=== PATIENT | male | born 1955 | race Caucasian/White ===

== ENCOUNTER 2018-01-14 23:02 | Emergency (ER) | payer OTHER | END 2018-01-15 03:42 | disposition home or self-care (01) | LOC: FTE 23:02 | DX: J02.9 Acute pharyngitis, unspecified (principal); J45.909 Unspecified asthma, uncomplicated; E11.9 Type 2 diabetes mellitus without complications; Z79.82 Long term (current) use of aspirin; Z79.84 Long term (current) use of oral hypoglycemic drugs | CPT/HCPCS: 70490; 99284-25 ==

== ENCOUNTER 2018-02-15 20:53 | Inpatient (IN) | payer OTHER ==
[2018-02-15] MEDS: ALBUTEROL/IPRATROPIUM (NEB) 3 ML AMP HHN (22:59)
[2018-02-15] MEDS ORDERED: NACL 0.9% 3 ML SYG IV (23:00)
[2018-02-15] MEDS ORDERED: ONDANSETRON 4 MG TAB PO (23:00)
[2018-02-15] MEDS ORDERED: ACETAMINOPHEN 325 MG TAB PO (23:00)
[2018-02-15] MEDS: predniSONE 20 MG TAB PO (23:12)
[2018-02-15] MEDS: SALMETEROL/FLUTICASONE 500/50 INHA INH (23:12)
[2018-02-15] MEDS: INSULIN ASPART [NOVOLOG] 3 ML PEN SC (23:15)
[2018-02-16] MEDS: ALBUTEROL/IPRATROPIUM (NEB) 3 ML AMP HHN ×6 (01:12→21:05)
[2018-02-16] MEDS ORDERED: ALBUTEROL/IPRATROPIUM (NEB) 3 ML AMP HHN (02:00)
[2018-02-16] MEDS: LEVOFLOXACIN 750MG/D5W (PMX) 150 ML IVPB (02:19)
[2018-02-16] MEDS ORDERED: GLUCOSE GEL 15 GRAM TUBE BUCCAL (03:00)
[2018-02-16] MEDS ORDERED: GLUCAGON 1 MG INJ IM (03:00)
[2018-02-16] MEDS ORDERED: GLUCOSE GEL 15 GRAM TUBE PO ×2 (03:00)
[2018-02-16] MEDS ORDERED: DEXTROSE 50% 50 ML SYRINGE IV ×2 (03:00)
[2018-02-16] MEDS: GUAIFENESIN/CODEINE 5ML CUP PO (03:31)
[2018-02-16] MEDS: PANTOPRAZOLE (EC) 40 MG TAB PO ×2 (04:00→05:49)
[2018-02-16 05:47] LABS: ADD MAN DIFF? NO
[2018-02-16 05:52] LABS: WHITE BLOOD COUNT 5.3 10^3/ul (4.8-10.8)
[2018-02-16 05:52] LABS: ABNORMAL IP MESSAGE 1; BASOPHILS % 0.2 % (0.0-2.0); HEMOGLOBIN 13.1 g/dl (14.0-18.0); LYMPHOCYTES # 0.6 10^3/ul (0.8-2.9); LYMPHOCYTES % 11.2 % (15.0-51.0); MEAN CORPUSCULAR HEMOGLOBIN 28.8 pg (29.0-33.0); MEAN CORPUSCULAR HGB CONC 32.8 g/dl (32.0-37.0); MEAN CORPUSCULAR VOLUME 87.9 fl (82.0-101.0); MEAN PLATELET VOLUME 10.5 fl (7.4-10.4); MONOCYTE # 0.3 10^3/ul (0.3-0.9); MONOCYTES % 5.3 % (0.0-11.0); NEUTROPHIL # 4.4 10^3/ul (1.6-7.5); NEUTROPHILS % 82.9 % (39.0-77.0); PLATELET COUNT 218 10^3/UL (140-415); POSITIVE DIFF @See below; RED BLOOD COUNT 4.55 10^6/ul (4.70-6.10); RED CELL DISTRIBUTION WIDTH 12.5 % (11.5-14.5)
[2018-02-16 07:45] LABS: ALANINE AMINOTRANSFERASE 67 IU/L (13-69); ALBUMIN/GLOBULIN RATIO 1.37; ALKALINE PHOSPHATASE 62 IU/L (42-121); ANION GAP 17 (8-16); ASPARTATE AMINO TRANSFERASE 35 IU/L (15-46); BILIRUBIN,INDIRECT 0.1 mg/dl (0-1.1); BILIRUBIN,TOTAL 0.1 mg/dl (0.2-1.3); BLOOD UREA NITROGEN 10 mg/dl (7-20); CALCIUM 8.7 mg/dl (8.4-10.2); CARBON DIOXIDE 21 mmol/L (21-31); CHLORIDE 107 mmol/L (97-110); CHOL/HDL RATIO 2.2 RATIO; CHOLESTEROL 97 mg/dl (100-200); CREATININE 0.64 mg/dl (0.61-1.24); GLUCOSE 249 mg/dl (70-220); HDL CHOLESTEROL 43 mg/dl (30-78); LDL CHOLESTEROL,CALCULATED 32 mg/dl; MAGNESIUM 2.2 mg/dl (1.7-2.5); POTASSIUM 4.1 mmol/L (3.5-5.1); SODIUM 141 mmol/L (135-144); TOTAL PROTEIN 6.9 g/dl (6.1-8.1); TRIGLYCERIDES 108 mg/dl (0-149)
[2018-02-16 08:13] LABS: THYROID STIMULATING HORMONE 0.319 MIU/L (0.465-4.680)
[2018-02-16] MEDS: SALMETEROL/FLUTICASONE 500/50 INHA INH ×2 (08:26→20:34)
[2018-02-16] MEDS: predniSONE 20 MG TAB PO (08:26)
[2018-02-16] MEDS: INSULIN ASPART [NOVOLOG] 3 ML PEN SC ×6 (08:30→20:35)
[2018-02-16] MEDS: METHYLPREDNISOLONE 125 MG INJ IV ×2 (12:11→22:46)
[2018-02-16] MEDS: NPH, HUMAN INSULIN ISOPHANE 3ML VIAL SC ×2 (12:13→22:48)
[2018-02-16] MEDS: ENOXAPARIN 40 MG/0.4 ML SYG SC (12:14)
[2018-02-16 12:26] LABS: FREE T4 (FREE THYROXINE) 0.83 ng/dl (0.78-2.44)
[2018-02-16] MEDS: MONTELUKAST 10 MG TAB PO (20:33)
[2018-02-16] MEDS: INSULIN GLARGINE [LANtus] 3 ML PEN SC (20:36)
[2018-02-17] MEDS: ALBUTEROL/IPRATROPIUM (NEB) 3 ML AMP HHN ×6 (01:05→20:55)
[2018-02-17] MEDS: ACCUCHECK AT 2AM (Patients on SS coverage) XX (02:42)
[2018-02-17] MEDS: LEVOFLOXACIN 750MG/D5W (PMX) 150 ML IVPB (02:44)
[2018-02-17] MEDS: PANTOPRAZOLE (EC) 40 MG TAB PO (05:13)
[2018-02-17 06:10] LABS: ADD MAN DIFF? NO; BASOPHILS % 0.1 % (0.0-2.0); HEMATOCRIT 41.2 % (42.0-52.0); HEMOGLOBIN 13.5 g/dl (14.0-18.0); LYMPHOCYTES # 0.8 10^3/ul (0.8-2.9); LYMPHOCYTES % 10.5 % (15.0-51.0); MEAN CORPUSCULAR HEMOGLOBIN 28.8 pg (29.0-33.0); MEAN CORPUSCULAR HGB CONC 32.8 g/dl (32.0-37.0); MEAN CORPUSCULAR VOLUME 87.8 fl (82.0-101.0); MEAN PLATELET VOLUME 10.6 fl (7.4-10.4); MONOCYTE # 0.5 10^3/ul (0.3-0.9); MONOCYTES % 6.1 % (0.0-11.0); NEUTROPHIL # 6.1 10^3/ul (1.6-7.5); NEUTROPHILS % 82.9 % (39.0-77.0); PLATELET COUNT 226 10^3/UL (140-415); RED BLOOD COUNT 4.69 10^6/ul (4.70-6.10); RED CELL DISTRIBUTION WIDTH 12.8 % (11.5-14.5)
[2018-02-17 06:10] LABS: WHITE BLOOD COUNT 7.3 10^3/ul (4.8-10.8)
[2018-02-17 06:32] LABS: MAGNESIUM 2.2 mg/dl (1.7-2.5)
[2018-02-17 06:32] LABS: PHOSPHORUS 4.7 mg/dl (2.5-4.9)
[2018-02-17 06:42] LABS: ANION GAP 19 (8-16); BLOOD UREA NITROGEN 17 mg/dl (7-20); CARBON DIOXIDE 25 mmol/L (21-31); CHLORIDE 103 mmol/L (97-110); CREATININE 0.76 mg/dl (0.61-1.24); GLUCOSE 260 mg/dl (70-220); POTASSIUM 4.5 mmol/L (3.5-5.1); SODIUM 142 mmol/L (135-144)
[2018-02-17] MEDS: INSULIN ASPART [NOVOLOG] 3 ML PEN SC ×7 (08:23→22:02)
[2018-02-17] MEDS: METHYLPREDNISOLONE 40 MG INJ IV ×2 (09:13→21:53)
[2018-02-17] MEDS: SALMETEROL/FLUTICASONE 500/50 INHA INH ×2 (09:13→21:53)
[2018-02-17] MEDS: ENOXAPARIN 40 MG/0.4 ML SYG SC (09:17)
[2018-02-17] MEDS: NPH, HUMAN INSULIN ISOPHANE 3ML VIAL SC ×2 (09:24→22:00)
[2018-02-17] MEDS: MONTELUKAST 10 MG TAB PO (21:53)
[2018-02-17] MEDS: INSULIN GLARGINE [LANtus] 3 ML PEN SC (22:01)
[2018-02-18] MEDS: ALBUTEROL/IPRATROPIUM (NEB) 3 ML AMP HHN ×4 (01:07→12:18)
[2018-02-18] MEDS: ACCUCHECK AT 2AM (Patients on SS coverage) XX (02:25)
[2018-02-18] MEDS: LEVOFLOXACIN 750MG/D5W (PMX) 150 ML IVPB (02:26)
[2018-02-18] MEDS: PANTOPRAZOLE (EC) 40 MG TAB PO (05:10)
[2018-02-18 05:55] LABS: ADD MAN DIFF? NO
[2018-02-18 05:58] LABS: WHITE BLOOD COUNT 8.3 10^3/ul (4.8-10.8)
[2018-02-18 05:58] LABS: HEMATOCRIT 41.7 % (42.0-52.0); LYMPHOCYTES # 0.8 10^3/ul (0.8-2.9); LYMPHOCYTES % 9.7 % (15.0-51.0); MEAN CORPUSCULAR HEMOGLOBIN 29.4 pg (29.0-33.0); MEAN CORPUSCULAR HGB CONC 33.6 g/dl (32.0-37.0); MEAN CORPUSCULAR VOLUME 87.4 fl (82.0-101.0); MEAN PLATELET VOLUME 10.6 fl (7.4-10.4); MONOCYTE # 0.4 10^3/ul (0.3-0.9); MONOCYTES % 4.5 % (0.0-11.0); NEUTROPHIL # 7.1 10^3/ul (1.6-7.5); NEUTROPHILS % 85.6 % (39.0-77.0); PLATELET COUNT 216 10^3/UL (140-415); RED BLOOD COUNT 4.77 10^6/ul (4.70-6.10); RED CELL DISTRIBUTION WIDTH 12.5 % (11.5-14.5)
[2018-02-18 06:28] LABS: ANION GAP 17 (8-16); BLOOD UREA NITROGEN 20 mg/dl (7-20); CALCIUM 9.4 mg/dl (8.4-10.2); CARBON DIOXIDE 26 mmol/L (21-31); CHLORIDE 100 mmol/L (97-110); CREATININE 0.79 mg/dl (0.61-1.24); GLUCOSE 259 mg/dl (70-220); POTASSIUM 4.6 mmol/L (3.5-5.1); SODIUM 138 mmol/L (135-144)
[2018-02-18 06:31] LABS: PHOSPHORUS 4.9 mg/dl (2.5-4.9)
[2018-02-18] MEDS: SALMETEROL/FLUTICASONE 500/50 INHA INH (07:58)
[2018-02-18] MEDS: METHYLPREDNISOLONE 40 MG INJ IV (07:58)
[2018-02-18] MEDS: NPH, HUMAN INSULIN ISOPHANE 3ML VIAL SC (08:04)
[2018-02-18] MEDS: ENOXAPARIN 40 MG/0.4 ML SYG SC (08:05)
[2018-02-18] MEDS: INSULIN ASPART [NOVOLOG] 3 ML PEN SC ×4 (08:05→12:47)
== END 2018-02-18 13:55 | disposition home or self-care (01) | DRG 203 ==
LOC: MS2 20:53
PROVIDERS: Internal Medicine
DX: J45.901 Unspecified asthma with (acute) exacerbation (principal); E11.9 Type 2 diabetes mellitus without complications; I10 Essential (primary) hypertension; J06.9 Acute upper respiratory infection, unspecified; E66.9 Obesity, unspecified; Z68.31 Body mass index [BMI] 31.0-31.9, adult; Z79.4 Long term (current) use of insulin
CPT/HCPCS: 71045; 80048; 80053; 80061; 82962; 83036; 83735; 84100; 84439; 84443; 85025; 94640; 94664